=== PATIENT | female | born 1985 | race Caucasian/White ===

== ENCOUNTER 2017-05-10 21:29 | Emergency (ER) | payer OTHER ==
[~2017-05-10] VITALS: Ht 154.9 cm; Wt 66.7 kg
[~2017-05-10 21:29] MED LIST: IBUPROFEN 800800 MG PO; PREDNISONE 20 M20 M1 PO; TRAMADOL 50 MG50 MG PO; VENTOLIN HFA 1818 GM INH; ZPAK PO
[2017-05-10] MEDS ORDERED: IBUPROFEN 600600 M1 PO (22:43)
[2017-05-10 22:58] VITALS: BP 141/87
== END 2017-05-10 22:59 | disposition home or self-care (01) ==
LOC: M.ERS 21:29
DX: S89.82XA Other specified injuries of left lower leg, initial encounter (principal); W10.8XXA Fall (on) (from) other stairs and steps, initial encounter; Y93.89 Activity, other specified; Y92.89 Other specified places as the place of occurrence of the external cause; Y99.8 Other external cause status